=== PATIENT | male | born 2000 | race Caucasian/White ===

== ENCOUNTER 2020-06-28 13:52 | Emergency (ER) | payer MEDICAID ==
[2020-06-28 14:06] VITALS: TEMP 98.2
[2020-06-28 14:29] LABS: Basophils % (A) 1 %; Eosinophils % (A) 1 %; HCT 48.6 % (39.0-53.0); HGB 16.1 gm/dL (13.0-17.5); Lymphocytes # (A) 1.9 k/uL (1.0-4.8); Lymphocytes % (A) 39 %; MCH 31.2 pg (25.0-35.0); MCV 94.5 fL (80.0-100.0); Mean Platelet Volume 7.8; Monocytes # (A) 0.3 k/uL (0-1.0); Monocytes % (A) 6 %; Neutrophils # (A) 2.4 k/uL (1.3-7.7); Neutrophils % (A) 51 %; Platelet Count 232 k/uL (150-450); RBC 5.14 m/uL (4.30-5.90); RDW 12.1 % (11.5-15.5); WBC 4.8 k/uL (3.8-10.6)
[2020-06-28 14:30] LABS: ALT 19 U/L (4-49); AST 24 U/L (17-59); African American GFR (CKD) >90 (>60 ml/min/1.73 sqM); Albumin 4.8 g/dL (3.5-5.0); Alkaline Phosphatase 71 U/L (38-126); Anion Gap 9 mmol/L; Blood Urea Nitrogen 17 mg/dL (9-20); Calcium 9.4 mg/dL (8.4-10.2); Carbon Dioxide 27 mmol/L (22-30); Chloride 103 mmol/L (98-107); Glucose 106 mg/dL (74-99); Non-African American GFR(CKD) >90 (>60 ml/min/1.73 sqM); Potassium 3.9 mmol/L (3.5-5.1); Sodium 139 mmol/L (137-145); Total Bilirubin 1.1 mg/dL (0.2-1.3); Total Protein 7.5 g/dL (6.3-8.2)
--- NOTE | 2020-06-28 14:33 | XR ---
EXAMINATION TYPE: XR chest 2V DATE OF EXAM: 06/28/2020 COMPARISON: Chest x-ray October 14, 2015 HISTORY: Syncope and weakness. TECHNIQUE: Frontal and lateral views of the chest are obtained. FINDINGS: Overlying EKG leads are in current study. There is no focal air space opacity, pleural effu cherelle, or pneumothorax seen. The cardiac silhouette size is within normal limits. The osseous struc tures are intact. IMPRESSION: No acute cardiopulmonary process. No significant change from prior.
--- NOTE | 2020-06-28 14:42 | ED ---
General Adult HPI - General Chief complaint: Syncope Stated complaint: Syncope Time Seen by Provider: 06/28/20 14:03 Source: patient Mode of arrival: ambulatory Limitations: no limitations - History of Present Illness Initial comments: 20-year-old male who states it's a significant history for social anxiety presenting to the emergency department today for chief complaint of syncopal episode before blood draw. 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 Patient states that this is not uncommon. He states he starts to lose his hearing and feels all sweaty and nose is brought to pass out. Patient states he had had a lot of anxiety anticipating his blood draw today which she states was routine he states he had no complaints. Patient denies any chest pain shortness of breath headache dizziness or visual changes prior. Patient states thinking about the blood draw he began joking around [facility] nurses saying I might pass out then felt like he was going to and stepped back into a chair so he didnt fall. Per staff patient has a syncopal episode then came to. They then placed patient on a stretcher and brought him to the emerg ency department for further evaluation. Patient has no complaints on arrival/at time of history taking. Appears well nontoxic in no acute distress. Denies cardiac history, - Related Data Home Medications Medication Instructions Recorded Confirmed No Known Home Medications 06/28/20 06/28/20 Allergies Allergy/AdvReac Type Severity Reaction Status Date / Time No Known Allergies Allergy Verified 06/28/20 14:42 Review of Systems ROS Statement: Those systems with pertinent positive or pertinent negative responses have been documented in the HPI. ROS Other: All systems not noted in ROS Statement are negative. Past Medical History Additional Past Medical History / Comment(s): Asperger's syndrome History of Any Multi-Drug Resistant Organisms: None Reported Past Surgical History: No Surgical Hx Reported Past Psychological History: Anxiety, Depression Smoking Status: Never smoker Past Alcohol Use History: Rare Past Drug Use History: None Reported General Exam - General Exam Comments Initial Comments: General: The patient is awake and alert, in no distress, and does not appear acutely ill. Eye: +3 mm pupils are equal, round and reactive to light, extra-ocular movem ents are intact. No nystagmus. There is normal conjunctiva bilaterally. No signs of icterus. Ears, nose, mouth and throat: There are moist mucous membranes and no oral l esions. Neck: The neck is supple, there is no tenderness or JVD. Cardiovascular: There is a regular rate and rhythm. No murmur, rub or gallop is appreciated. Respiratory: Lungs are clear to auscultation, respirations are non-labored, breath sounds are equal. No wheezes, stridor, rales, or rhonchi. Gastrointestinal: Soft, non-distended, non-tender abdomen without masses or organomegaly noted. There is no rebound or guarding present. Musculoskeletal: Normal ROM, no tenderness. Strength 5/5. Sensation intact. Pulses equal bilaterally 2+. Neurological: A&O x 3. CN II-XII intact, There are no obvious motor or sensory deficits. Coordination appears grossly intact. Speech is normal. Skin: Skin is warm and dry and no rashes or lesions are noted. No leg swelling, of calf pain. Psychiatric: Cooperative, appropriate mood & affect, normal judgment. Limitations: no limitations Course Vital Signs 06/28/20 06/28/20 06/28/20 13:59 14:45 15:11 Temperature 98.2 F Pulse Rate 56 L 60 61 Respiratory 18 17 18 Rate Blood Pressure 94/66 99/68 98/61 O2 Sat by Pulse 100 100 100 Oximetry Medical Decision Making - Medical Decision Making 20-year-old male presenting today for chief complaint of syncopal episode prior to blood draw. She states interesting the blood draw while waiting for to begin he passed out. Patient states this is not uncommon and has happened with previous blood draws in the past. 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 Patient states that he has no complaints. No murmur. Laboratory studies stable. Chest x-ray clear. Patient appears nontoxic and was requesting discharge. Patient case discussed with Dr. Lovett who reviewed EKG and is agreeable to care plan and discharge. - Lab Data Result diagrams: 06/28/20 14:00 06/28/20 14:00 Lab Results 06/28/20 06/28/20 06/28/20 Range/Units 14:00 14:00 14:00 WBC 4.8 (3.8-10.6) k/uL RBC 5.14 (4.30-5.90) m/uL Hgb 16.1 (13.0-17.5) gm/dL Hct 48.6 (39.0-53.0) % MCV 94.5 (80.0-100.0) fL MCH 31.2 (25.0-35.0) pg MCHC 33.0 (31.0-37.0) g/dL RDW 12.1 (11.5-15.5) % Plt Count 232 (150-450) k/uL Neutrophils % 51 % Lymphocytes % 39 % Monocytes % 6 % Eosinophils % 1 % Basophils % 1 % Neutrophils # 2.4 (1.3-7.7) k/uL Lymphocytes # 1.9 (1.0-4.8) k/uL Monocytes # 0.3 (0-1.0) k/uL Eosinophils # 0.0 (0-0.7) k/uL Basophils # 0.0 (0-0.2) k/uL Sodium 139 (137-145) mmol/L Potassium 3.9 (3.5-5.1) mmol/L Chloride 103 (98-107) mmol/L Carbon Dioxide 27 (22-30) mmol/L Anion Gap 9 mmol/L BUN 17 (9-20) mg/dL Creatinine 0.85 (0.66-1.25) mg/dL Est GFR (CKD-EPI)AfAm >90 (>60 ml/min/1.73 sqM) Est GFR (CKD-EPI)NonAf >90 (>60 ml/min/1.73 sqM) Glucose 106 H (74-99) mg/dL Calcium 9.4 (8.4-10.2) mg/dL Total Bilirubin 1.1 (0.2-1.3) mg/dL AST 24 (17-59) U/L ALT 19 (4-49) U/L Alkaline Phosphatase 71 (38-126) U/L Troponin I <0.012 (0.000-0.034) ng/mL Total Protein 7.5 (6.3-8.2) g/dL Albumin 4.8 (3.5-5.0) g/dL Disposition Clinical Impression: Syncope Disposition: HOME SELF-CARE Condition: Good Instructions (If sedation given, give patient instructions): Syncope (ED) Additional Instructions: Please use medication as discussed. Please follow-up with family doctor in the next 2 days. Please return to emergency room if the symptoms increase or worsen or for any other concerns. Is patient prescribed a controlled substance at d/c from ED?: No Referrals: Luan Li DO [Primary Care Provider] - 1-2 days Time of Disposition: 14:41
[2020-06-28 15:12] VITALS: BP 98/61; PULSE 61; RESP 18
[2020-06-29 14:04] LABS: Glucose,Whole Blood 90 mg/dL (75-99)
== END 2020-06-28 15:12 | disposition home or self-care (01) ==
LOC: EC 13:52
DX: R55 Syncope and collapse (principal); H91.93 Unspecified hearing loss, bilateral
CPT/HCPCS: 36415; 71046; 80053; 84484; 85025; 93005; 99284

== ENCOUNTER → 2020-06-28 | Outpatient (CLI) | payer MEDICAID ==
[2020-06-28 14:45] LABS: Cholesterol 162 mg/dL (<200); HDL Cholesterol 64 mg/dL (40-60); LDL Cholesterol,Calculated 86 mg/dL (0-99); Triglycerides 60 mg/dL (<150)
[2020-06-28 15:03] LABS: T4, Free (Free Thyroxine) 1.08 ng/dL (0.78-2.19)
[2020-06-28 20:33] LABS: Hemoglobin A1C 4.9 % (4.0-6.0)
== END | disposition home or self-care (01) ==
LOC: LABWHC1 12:32
PROVIDERS: ATTEND Family Medicine
DX: Z00.01 Encounter for general adult medical examination with abnormal findings (principal); R63.6 Underweight
CPT/HCPCS: 36415; 80061; 82306; 83036; 84439; 84443